=== PATIENT | male | born 1985 | race Caucasian/White ===

== ENCOUNTER 2020-08-07 13:00 | Emergency (ER) | payer MEDICAID ==
[2020-08-07] MEDS ORDERED: Acetaminophen 500 MG Tab PO ONE (14:18)
[2020-08-07] MEDS ORDERED: Ketorolac 15 MG/ML SDV IM ONE (14:18)
[2020-08-07] MEDS ORDERED: Acetaminophen 325 MG Tab PO ONE (14:33)
--- NOTE | 2020-08-07 15:36 | CR ---
Indication: Pain and swelling Technique: Two views right radius/ulna Comparison: Wrist radiographs acquired concurrently. Findings/impression : Radius and ulna are intact. The elbow and distal radial-ulnar joint are intact. A subtle fracture at the 5th carpal metacarpal joint on the wrist radiographs is not well seen on the forearm images. See wrist radiograph report for further detail. Dictated by Phillip Soriano MD @ 08/07/2020 3:35:[address] Phillip Soriano @ Aug 07 2020 3:35PM
--- NOTE | 2020-08-07 15:40 | CR ---
Indication: Pain in medial wrist after punching injury Technique: Three views of the wrist. Comparison: Forearm and hand radiographs acquired concurrently. Findings: Small bone fragment is noted at the medial aspect of that 5th carpal/metacarpal joint. This may be a fracture fragment with the donor site from that proximal aspect of the 5th metacarpal or, less likely, hamate bone. Bones otherwise in good alignment with no other site concerning for fracture identified. Impression: Small fracture fragment noted at medial aspect of 5th carpal metacarpal joint likely arising from the proximal 5th metacarpal or hamate. Dictated by Phillip Soriano MD @ 08/07/2020 3:39:[address] Phillip Soriano @ Aug 07 2020 3:39PM
--- NOTE | 2020-08-07 15:43 | CR ---
Indication: Pain after injury Technique: Three views right hand Comparison: Right wrist radiographs acquired concurrently. Findings: Small fracture fragment is noted at the medial aspect of the 5th carpometacarpal joint which appears to come from the proximal 5th metacarpal or, less likely, hamate bone. Joint spaces otherwise preserved. No other site concerning for fracture is identified. Soft tissues are otherwise unremarkable. Impression: Small fracture fragment at medial aspect of 5th carpal metacarpal joint likely arising from the proximal 5th metacarpal or, less likely, hamate. Dictated by Phillip Soriano MD @ 08/07/2020 3:42:[address] Phillip Soriano @ Aug 07 2020 3:42PM
--- NOTE | 2020-08-07 16:02 | EDM.PDOC ---
ED HPI GENERAL MEDICAL PROBLEM - General Chief Complaint: Upper Extremity Injury/Pain Stated Complaint: RIGHT WRIST BROKEN Time Seen by Provider: 08/07/20 13:40 - History of Present Illness INITIAL COMMENTS - FREE TEXT/NARRATIVE: CHIEF COMPLAINT(S): Hand pain HISTORY OF PRESENT ILLNESS: This is a 34-year-old man without any significant past medical history who presents taken to department with a chief complaint of right hand pain. The patient states that last night he was putting a bag and he did not have any symptoms last night however when he woke up this morning he started to have right wrist, hand and forearm pain. He rates his pain as 8-9 out of 10 without any radiation of the pain. He denies any numbness, tingling, weakness. States that he to ibuprofen without any relief. He describes the pain as sharp and achy. Aggravating factors include moving his hand, wrist or forearm. Relieving factors are none. He denies any other injury. REVIEW OF SYSTEMS: Constitutional: Denies fever, chills. Eyes: Denies eye pain Ears, Nose, Mouth, & Throat: Denies earache Cardiovascular: Denies chest pain Respiratory: Denies shortness of breath Gastrointestinal: Denies Nausea, vomiting, diarrhea, hematochezia. Genitourinary: Denies hematuria Skin:Denies a rash MSK: Positive for right hand, wrist and forearm pain Neurological: Denies blurred vision, numbness continue with Aleve Psychiatric: Denies depression PAST MEDICAL HISTORY: As per history of present illness and as reviewed below otherwise noncontributory. SURGICAL HISTORY: As per history of present illness and as reviewed below otherwise noncontributory. SOCIAL HISTORY: As per history of present illness and as reviewed below otherwise noncontributory. FAMILY HISTORY: As per history of present illness and as reviewed below otherwise noncontributory. EXAMINATION OF ORGAN SYSTEMS/BODY AREAS: Constitutional: Blood pressure was 138/81, rate 84, respiratory rate 17 with an oxygen saturation of 97% on room air. Temperature 30.4 General: Default value Psychiatric: Appropriate mood and affect. Eyes: No scleral icterus or conjunctival erythema ENMT: Moist mucous membranes. No pharyngeal erythema Cardiovascular: Regular, rate, and rhythm. No gallops, murmurs, or rubs. Bilateral upper extremity pulses symmetric and intact. No peripheral edema. No JVD. Respiratory: Lungs clear to auscultation bilaterally. No wheezes, rales, or rhonchi. Gastrointestinal: Soft, non-tender, non-distended. Normoactive bowel sounds Genitourinary: No suprapubic tenderness Musculoskeletal: The patient's right hand is mildly swollen as compared to the left. Capillary refill is less than 2 seconds in bilateral upper extremity at the distal tip. The patient has anatomical snuffbox tenderness but is able to touch all his fingers with his mom. There is medial wrist tenderness and mid forearm tenderness. Distal sensation is intact. No obvious deformity. Range of motion limited secondary to pain. Skin: No lesions or abrasions. Neurological: Alert, GCS 15 distal sensation is intact. MEDICAL DECISION MAKING AND COURSE IN THE ED WITH INTERPRETATION/REVIEW OF DIAGNOSTIC STUDIES: This is a 32 man without any significant past medical history who comes in with right hand, right wrist and forearm tenderness and swelling after punching a bag 24 hours ago. At this time obtain forearm, wrist and hand x-rays we will provide the patient with Tylenol and Toradol for him. I do not believe any labs are indicated. The radiological images were viewed by myself along with reading the report from the radiologist. Hand x-ray of the right reveals small fracture met at the medial after the fifth metacarpal joints likely arising from the proximal fifth metacarpal or less likely hamate. Right wrist x-ray reveals same fracture fragment as the hand x-ray. Forearm right x-ray does not reveal any acute fracture or dislocation. After imaging I did contact [facility] in [place] and spoke with Dr. Martinez hand surgeon who recommended splint and follow-up. Therefore a thumb spica cast given the anatomical snuffbox tenderness and to immobilize the fifth metacarpal fracture. He is to return any new or worsening symptoms. He was given contact information for follow-up. DISPOSITION: The patient was discharged home in stable condition. The patient will follow up with hand surgery was signed from discussed and discharge report CONDITION: Fair PROCEDURES: None FINAL IMPRESSION(S)/DIAGNOSES: 1. Acute right fifth carpal metacarpal fracture DME: Right thumb spica splint Indication: Metacarpal fracture, snuffbox tenderness suspect scaphoid fracture Benefit: Immobilization Duration: Until follow-up with hand surgery Lionel Reynoso M.D. Right wrist Pain Score (Numeric/FACES): 8 - Related Data Allergies Allergy/AdvReac Type Severity Reaction Status Date / Time Penicillins Allergy Nausea and Verified 08/07/20 13:49 Vomiting Home Meds: Home Meds busPIRone [Buspar] 15 mg PO DAILY 08/07/20 [History] cloNIDine [Catapres] 0.3 mg PO TID 08/07/20 [History] lamoTRIgine [Lamotrigine] 200 mg PO BID 08/07/20 [History] Past Medical History - Past Health History Medical/Surgical History: Denies Medical/Surgical History Psychiatric History: Reports: Anxiety - Infectious Disease History Infectious Disease History: Reports: None Social & Family History - Family History Family Medical History: No Pertinent Family History - Tobacco Use Tobacco Use Status *Q: Never Tobacco User - Caffeine Use Caffeine Use: Reports: None - Recreational Drug Use Recreational Drug Use: No Review of Systems - Review of Systems Review Of Systems: See Below ED EXAM, GENERAL - Physical Exam Exam: See Below Course - Vital Signs Last Recorded V/S: Last Vital Signs Temp 36.4 C 08/07/20 13:50 Pulse 73 08/07/20 16:27 Resp 16 08/07/20 16:27 BP 135/76 08/07/20 16:27 Pulse Ox 97 08/07/20 16:27 - Orders/Labs/Meds Meds: Medications Discontinued Medications Generic Name Dose Route Start Last Admin Trade Name Jg PRN Reason Stop Dose Admin Acetaminophen 1,000 mg 08/07/20 14:18 08/07/20 14:35 Acetaminophen 500 Mg Tab PO 08/07/20 14:19 1,000 mg ONETIME ONE Administration Ketorolac Tromethamine 15 mg 08/07/20 14:18 08/07/20 14:35 Ketorolac 15 Mg/Ml Sdv IM 08/07/20 14:19 15 mg ONETIME ONE Administration Departure - Departure Time of Disposition: 16:01 Disposition: Home, Self-Care 01 Condition: Fair Clinical Impression: Fracture of metacarpal bone - Discharge Information *PRESCRIPTION DRUG MONITORING PROGRAM REVIEWED*: No *COPY OF PRESCRIPTION DRUG MONITORING REPORT IN PATIENT RICHELLE: No Instructions: Cast or Splint Care, Adult, [id number], Metacarpal Fracture, [id number], Scaphoid Fracture Referrals: PCP,None [Primary Care Provider] - Forms: ED Department Discharge Additional Instructions: You evaluate today on an emergent basis. At the base of your pinky there is a broken bone there and there is concern for bone just under your thumb called the scaphoid. I did speak with hand surgeon Dr. Martinez who recommended thumb spica splint and follow-up in 1 week. Please use Tylenol and Motrin for pain relief. Please keep the arm elevated and you may use ice to the affected area 20 minutes 4 times a day. Return if any new or worsening symptoms. Please use: Tylenol 500-1000mg every 6 hours (DO NOT TAKE MORE THAN 4000mg in 1 day) Ibuprofen 400mg every 6 hours (Take with food as it can cause ulcers, GI upset) Example schedule: 8:00 AM (Tylenol 500-1000mg) 11:00 AM (Ibuprofen 400mg) 2:00 PM (Tylenol 500-1000mg) 5:00 PM (Ibuprofen 400mg) Ice the area 20 minutes 4 times per day [facility] Dr. Martinez [phone] The patient is informed of any results of their evaluation and diagnostic workup and all questions are answered. They are given discharge instructions and return precautions. The patient is stable for discharge. The patient states they understand and agree with the plan and that they will return if their symptoms get worse or if they have any new concerns. The following information is given to patients seen in the emergency department who are being discharged to home. This information is to outline your options for follow-up care. We provide all patients seen in our emergency department with a follow-up referral. The need for follow-up, as well as the timing and circumstances, are variable depending upon the specifics of your emergency department visit. If you don't have a primary care physician on staff, we will provide you with a referral. We always advise you to contact your personal physician following an emergency department visit to inform them of the circumstance of the visit and for follow-up with them and/or the need for any referrals to a consulting specialist. The emergency department will also refer you to a specialist when appropriate. This referral assures that you have the opportunity for follow-up care with a specialist. All of these measure are taken in an effort to provide you with optimal care, which includes your follow-up. Under all circumstances we always encourage you to contact your private physician who remains a resource for coordinating your care. When calling for follow-up care, please make the office aware that this follow-up is from your recent emergency room visit. If for any reason you are refused follow-up, please contact the [facility] Emergency Department at and asked to speak to the emergency department charge nurse. Sepsis Event Note (ED) - Evaluation Sepsis Screening Result: No Definite Risk
== END 2020-08-07 16:26 | disposition home or self-care (01) ==
LOC: MW.ED 13:00
DX: S62.396A Other fracture of fifth metacarpal bone, right hand, initial encounter for closed fracture (principal); Z88.0 Allergy status to penicillin; W22.8XXA Striking against or struck by other objects, initial encounter
CPT/HCPCS: 73090; 73110; 73130; 96372; 99283; A9270; J1885

== ENCOUNTER → 2022-02-15 | Emergency (ER) | payer BC ==
[~2022-02-15] MED LIST: Iopamidol 755 MG/ML 500 ML Multipack Bottle IVPUSH STA; Morphine 4 MG/ML Syringe IVPUSH STA; Ondansetron 4 MG/2 ML SDV IVPUSH STA; Sodium Chloride 0.9% 1,000 ML IV SCH; Sodium Chloride 0.9% 10 ML Syringe FLUSH PRN; Sodium Chloride 0.9% 2.5 ML Syringe FLUSH PRN
[2022-02-15 14:04] LABS: CARBON DIOXIDE,CO2 26.5 mmol/L (21.0-32.0); POTASSIUM,K 3.6 mmol/L (3.5-5.1)
[2022-02-15 14:27] LABS: CORONAVIRUS COVID-19 NAA NEGATIVE (NEGATIVE); INFLUENZA A NAA NEGATIVE (NEGATIVE); INFLUENZA B NAA NEGATIVE (NEGATIVE)
== END | disposition home or self-care (01) ==
LOC: MW.ED 12:11
DX: R10.12 Left upper quadrant pain (principal); R74.01 Elevation of levels of liver transaminase levels; Z88.0 Allergy status to penicillin; Z20.822 Contact with and (suspected) exposure to COVID-19
CPT/HCPCS: 0240U; 36415; 74177; 80053; 80307; 83690; 83735; 84484; 85025; 93005; 96361; 96374; 96375; 99284; J2270; J2405; J3490; J7030; Q9967

== ENCOUNTER 2023-09-18 14:45 | Emergency (ER) | payer BC ==
[2023-09-18] MEDS: Ketorolac 30 MG/ML SDV IM ONE (15:36)
[2023-09-18] MEDS: Diphtheria,Pertussis(Acell),Tetanus Vaccine 0.5 ML Syringe IM ONE (15:42)
== END 2023-09-18 16:35 | disposition home or self-care (01) ==
LOC: MW.ED 14:45
DX: S91.332A Puncture wound without foreign body, left foot, initial encounter (principal); Z88.0 Allergy status to penicillin; Z23 Encounter for immunization; X58.XXXA Exposure to other specified factors, initial encounter
CPT/HCPCS: 73630; 90471; 90715; 96372; 99283; J1885